=== PATIENT | male | born 1950 | race African-American/Black ===

== ENCOUNTER 2022-05-23 17:10 | Emergency (ER) | payer MEDICARE, MEDICAID ==
[~2022-05-23] VITALS: Ht 175.3 cm; Wt 73.0 kg
[~2022-05-23 17:10] MED LIST: ASPI-864
[2022-05-23] MEDS ORDERED: BACITRACIN ZINC OINT UDPKT TOP ONE (20:45)
[2022-05-24 05:56] VITALS: BP 138/86
== END 2022-05-24 08:56 | disposition home or self-care (01) ==
LOC: ER 17:10
DX: F10.129 Alcohol abuse with intoxication, unspecified (principal); Y90.9 Presence of alcohol in blood, level not specified; I10 Essential (primary) hypertension; I67.82 Cerebral ischemia; W01.0XXA Fall on same level from slipping, tripping and stumbling without subsequent striking against object, initial encounter; Y93.89 Activity, other specified; Y92.9 Unspecified place or not applicable
CPT/HCPCS: 70450; 71045; 72170; 99285; Z7610